=== PATIENT | male | born 1985 | race Caucasian/White ===

== ENCOUNTER 2018-03-26 17:15 | Emergency (ER) | payer OTHER ==
[~2018-03-26] VITALS: Ht 167.6 cm; Wt 147.1 kg
[2018-03-26 17:19] VITALS: BP 154/115
== END 2018-03-26 20:04 | disposition home or self-care (01) ==
LOC: ED 20:03
DX: L03.115 Cellulitis of right lower limb (principal); F17.200 Nicotine dependence, unspecified, uncomplicated; M25.474 Effusion, right foot
CPT/HCPCS: 99283

== ENCOUNTER → 2018-03-26 | Outpatient (CLI) | payer OTHER ==
[2018-03-26 10:48] LABS: BASOPHILS % (AUTO) 0 % (0-1); EOSINOPHILS # (AUTO) 0.21 x10^3/uL (0-0.4); EOSINOPHILS % (AUTO) 2 % (1-7); LYMPHOCYTES # (AUTO) 1.91 x10^3/uL (1-3.4); LYMPHOCYTES % (AUTO) 19 % (22-44); MD NO; MEAN CORPUSCULAR HEMOGLOBIN 29.1 pg (27.5-34.5); MEAN CORPUSCULAR HGB CONC 34.1 g/dL (33.2-36.2); MEAN CORPUSCULAR VOLUME 85.5 fL (81-97); MONOCYTES # (AUTO) 0.54 x10^3/uL (0.2-0.8); MONOCYTES % (AUTO) 5 % (2-9); NEUTROPHILS # (AUTO) 7.45 x10^3/uL (1.8-6.8); NEUTROPHILS % (AUTO) 74 % (42-75); PLATELET COUNT 316 x10^3/uL (130-400); RED CELL DISTRIBUTION WIDTH 13.5 % (9.4-14.8)
== END | disposition home or self-care (01) ==
LOC: LAB 10:32
DX: M25.571 Pain in right ankle and joints of right foot (principal)
CPT/HCPCS: 36415; 84550; 85025

== ENCOUNTER → 2018-12-17 | Outpatient (CLI) | payer OTHER | END | disposition home or self-care (01) | LOC: CFH 08:24 | PROVIDERS: ATTEND Urology | DX: I86.1 Scrotal varices (principal) | CPT/HCPCS: 72192 ==

== ENCOUNTER 2019-01-03 09:02 | Outpatient (CLI) | payer OTHER ==
[2019-01-03] MEDS ORDERED: CHOL5000 PO (09:26)
[2019-01-03] MEDS ORDERED: FEXO180T72 PO (09:26)
[2019-01-03] MEDS ORDERED: FLUT9.9S NAS (09:26)
[2019-01-03] MEDS ORDERED: NABU750T PO (09:26)
[2019-01-03] MEDS ORDERED: FAMO20TA7 PO (09:26)
== END 2019-01-03 23:59 | disposition home or self-care (01) ==
LOC: STAR 09:02
PROVIDERS: ATTEND Urology
DX: Z02.9 Encounter for administrative examinations, unspecified (principal)

== ENCOUNTER 2019-01-12 09:34 | Day surgery (SDC) | payer OTHER ==
[2019-01-03 09:20] VITALS: BP 142/96
[~2019-01-12] VITALS: Ht 168.9 cm; Wt 145.3 kg
[~2019-01-12 09:34] MED LIST: CHOL5000 PO; FAMO20TA7 PO; FEXO180T72 PO; FLUT9.9S NAS; NABU750T PO
[2019-01-12] MEDS ORDERED: LACTATED RINGERS 1,000 ML IV SCH (10:05)
[2019-01-12 10:06] VITALS: BP 142/96
[2019-01-12] MEDS ORDERED: MIDAZOLAM 1 MG/ML, 2ML ONE (11:43)
[2019-01-12] MEDS ORDERED: FENTANYL PF 250 MCG/5ML ONE (11:44)
[2019-01-12] MEDS ORDERED: BUPIVACAINE/PF 0.25% ONE ×2 (11:45→12:08)
[2019-01-12] MEDS ORDERED: EPINEPHRINE 1 MG/ML, 1ML ONE (11:45)
[2019-01-12] MEDS ORDERED: CEFAZOLIN 1,000 MG ONE ×2 (11:53→12:12)
[2019-01-12] MEDS ORDERED: SUCCINYLCHOLINE 20 MG/ML, 10ML ONE (11:53)
[2019-01-12] MEDS ORDERED: PROPOFOL 50 ML ONE ×2 (11:55→12:24)
[2019-01-12] MEDS ORDERED: ONDANSETRON 2MG/ML, 2ML ONE ×2 (12:12)
[2019-01-12] MEDS ORDERED: DEXAMETHASONE 4 MG/ML, 1ML ONE ×2 (12:12)
[2019-01-12] MEDS ORDERED: FENTANYL PF 100 MCG/2ML ONE ×2 (12:55→13:56)
[2019-01-12] MEDS ORDERED: OXYcodone 5 MG/5 ML ORAL.SOL UDC ONE (13:57)
[2019-01-12] MEDS ORDERED: MIDAZOLAM 1 MG/ML, 2ML IV PRN (14:00)
[2019-01-12] MEDS ORDERED: hydrALAzine 20 MG/ML, 1ML IV PRN (14:00)
[2019-01-12] MEDS ORDERED: LORazepam 2 MG/ML, 1ML IVPush PRN (14:00)
[2019-01-12] MEDS ORDERED: METOPROLOL 1 MG/ML, 5ML IV PRN (14:00)
[2019-01-12] MEDS ORDERED: FENTANYL PF 100 MCG/2ML IV PRN (14:00)
[2019-01-12] MEDS ORDERED: ALBUTEROL/IPRATROPIUM 2.5MG/0.5MG, 3 ML NPPB PRN (14:00)
[2019-01-12] MEDS ORDERED: HYDROmorphone 2 MG/ML, 1ML IVPush PRN (14:00)
[2019-01-12] MEDS ORDERED: OXYcodone 5 MG/5 ML ORAL.SOL UDC PO PRN (14:00)
[2019-01-12] MEDS ORDERED: HALOPERIDOL 5 MG/ML IV PRN (14:00)
[2019-01-12] MEDS ORDERED: MEPERIDINE/PF 25MG/0.5ML IVPush PRN (14:00)
[2019-01-12] MEDS ORDERED: LABETALOL 5MG/ML, 20ML IV PRN (14:00)
[2019-01-12] MEDS ORDERED: ACETAMINOPHEN 325 MG TABLET PO PRN (14:00)
[2019-01-12] MEDS ORDERED: PROMETHAZINE 25 MG/ML, 1ML IV PRN (14:00)
[2019-01-12] MEDS ORDERED: ONDANSETRON 2MG/ML, 2ML IV PRN (14:00)
[2019-01-12] MEDS ORDERED: MORPHINE SULFATE 4 MG/ML, 1ML IVPush PRN (14:00)
== END 2019-01-12 15:45 | disposition home or self-care (01) ==
LOC: OUT 09:34
PROVIDERS: ATTEND Urology
DX: D17.6 Benign lipomatous neoplasm of spermatic cord (principal); N50.812 Left testicular pain; F17.210 Nicotine dependence, cigarettes, uncomplicated; Z87.39 Personal history of other diseases of the musculoskeletal system and connective tissue; I48.91 Unspecified atrial fibrillation
CPT/HCPCS: 55520; 88305; J0171; J0330; J0690; J1100; J2250; J2405; J2704; J3010; J3490; J7120